=== PATIENT | male | born 1970 | race Caucasian/White ===

== ENCOUNTER 2016-11-15 10:53 | Emergency (ER) | payer MEDICARE | END 2016-11-15 11:54 | disposition home or self-care (01) | LOC: ER 10:53 | DX: K05.00 Acute gingivitis, plaque induced (principal); E11.9 Type 2 diabetes mellitus without complications; I10 Essential (primary) hypertension; E78.5 Hyperlipidemia, unspecified; F32.9 Major depressive disorder, single episode, unspecified; Z87.442 Personal history of urinary calculi; Z88.0 Allergy status to penicillin; Z79.82 Long term (current) use of aspirin; Z79.84 Long term (current) use of oral hypoglycemic drugs; Z79.899 Other long term (current) drug therapy ==

== ENCOUNTER 2016-12-05 16:41 | Emergency (ER) | payer MEDICARE | END 2016-12-05 17:30 | disposition left against medical advice (07) | LOC: ER 16:41 | DX: Z53.21 Procedure and treatment not carried out due to patient leaving prior to being seen by health care provider (principal) ==